=== PATIENT | female | born 1980 | race Caucasian/White ===

== ENCOUNTER 2017-07-02 11:09 | Emergency (ER) | payer BC ==
[2017-07-02 11:20] VITALS: BMI 32.8
[2017-07-02 11:24] VITALS: RESP 18; TEMP 97.7; O2SAT 100
[2017-07-02] MEDS ORDERED: Sodium Chloride 0.9% 1,000 ML IV STA (11:37)
--- NOTE | 2017-07-02 11:40 | ED PDOC ---
Arrival/HPI - General Chief Complaint: Abdominal Pain Time Seen by Provider: 07/02/17 11:37 Historian: Patient - History of Present Illness Narrative History of Present Illness (Text): 07/02/17 11:38 A 36 year old female, whose past medical history includes cholecystectomy, presents to the emergency department complaining of constant RLQ pain. Patient states nothing helps relief the pain and describes the pain as pressure-like. Patient experiences nausea, but no vomiting, fever, chills, or any other complaints. PMD: Dr. Gem Sargent Symptom Onset: Sudden Symptom Course: Unchanged Quality: Pressure Past Medical History - Provider Review Nursing Documentation Reviewed: Yes - Infectious Disease Hx of Infectious Diseases: None - Pulmonary Hx Asthma: Yes - Hematological/Oncological Hx Blood Transfusions: No - Musculoskeletal/Rheumatological Hx Falls: No - Psychiatric Hx Depression: No Hx Emotional Abuse: No Hx Physical Abuse: No Hx Substance Use: No - Surgical History Hx Section: Yes (x2) Hx Cholecystectomy: Yes Hx Tonsillectomy: Yes Other/Comment: nose surgery - Anesthesia Hx Anesthesia: Yes Hx Anesthesia Reactions: No Hx Malignant Hyperthermia: No - Suicidal Assessment Feels Threatened In Home Enviroment: No Family/Social History - Physician Review Nursing Documentation Reviewed: Yes Family/Social History: No Known Family HX Smoking Status: Never Smoked Hx Alcohol Use: No Hx Substance Use: No Hx Substance Use Treatment: No Allergies/Home Meds Allergies/Adverse Reactions: Allergies Penicillins Allergy (Verified 07/02/17 11:20) SHORTNESS OF BREATH Physical Exam - Physical Exam Narrative Physical Exam (Text): 07/02/17 11:39 - Review of Systems Constitutional: Normal. absent: Fatigue, Weight Change, Fevers Eyes: Normal ENT: denies sore throat, denies tristhmus Respiratory: Normal. absent: SOB, Cough, Sputum Cardiovascular: absent: Chest Pain, Palpitations, Syncope Gastrointestinal: Abdominal Pain (RLQ), Nausea. absent: Diarrhea, Vomiting Genitourinary: Normal. absent: Dysuria, Frequency, Hematuria, vaginal bleeding Musculoskeletal: Normal. absent: Arthralgias, Back Pain, Neck Pain Skin: no rashes, no erythema Neurological: absent: Focal Weakness Endocrine: Normal Hemo/Lymphatic: Normal Psychiatric: No suicidal or homicidal ideations Physical exam Patient appears age appropriate in no distress, speaking full sentences without difficulty - Systems Exam Head: Present: Atraumatic, Normocephalic Pupils: Present: PERRL Extroacular Muscles: Present: EOMI Conjunctiva: Present: Normal Mouth: Present: Moist Mucous Membranes Neck: Present: Normal Range of Motion. No: MIDLINE TENDERNESS, Paraspinal Tenderness Respiratory/Chest: Present: Clear to Auscultation, Good Air Exchange. No: Respiratory Distress, Accessory Muscle Use, Tachypneic Cardiovascular: Present: Regular Rate and Rhythm, Normal S1, S2, Peripheal Pulses Present. No: Murmurs Abdomen: Present: Tenderness (RLQ), Normal Bowel Sounds. No: Distention, Peritoneal Signs, Rebound, Guarding Back: Present: Normal Inspection. No: Midline Tenderness, Paraspinal Tenderness Upper Extremity: Present: Normal Inspection. No: Cyanosis, Edema Lower Extremity: Present: Normal Inspection. No: Edema Neurological: Present: GCS=15, Speech Normal, cranial nerves II through XII fully intact with no cerebellar abnormality, neurosensory fully intact. No focal neurological deficits. Skin: Present: Warm, Dry, Normal Color. No: Rashes Lymphatic: Present: OX3, NI, NC Psychiatric: Present: Alert, Oriented x 3, Normal Insight, Normal Concentration Vital Signs Reviewed: Yes Vital Signs Temp Pulse Resp BP Pulse Ox 07/02/17 13:28 65 18 125/74 100 07/02/17 12:28 63 18 128/79 100 07/02/17 11:24 97.7 F 65 18 130/84 100 Temperature: Afebrile Blood Pressure: Normal Pulse: Regular Respiratory Rate: Normal Appearance: Positive for: Well-Appearing Pain Distress: None Mental Status: Positive for: Alert and Oriented X 3 Medical Decision Making ED Course and Treatment: 07/02/17 11:41 Impression: 36 year old female with RLQ pain. Physical exam shows RLQ tenderness. Differential Diagnosis included but are not limited to: Ovarian Cyst vs. Appendicitis Plan: -- Abd/pelvis CT -- Labs -- Urinalysis -- Toradol -- Zofran -- IV Fluids -- Blood Culture -- Reassess and disposition Progress Notes: 07/02/17 13:32 CT IMPRESSION: There is a small 2 cm x 1.8 cm peripherally enhancing involuting or hemorrhagic cyst left ovary. No evidence of acute appendicitis. No evidence of nephrolithiasis or hydronephrosis. Borderline hepatomegaly with fatty infiltration. Mild splenomegaly. Status post cholecystectomy. Findings consistent with mild constipation. pt still c/o pain will order more meds and mg citrate pt has no LLQ tenderness to palpation or pain 07/02/17 14:17 On reevaluation, patient reports that she feels much better and would like to be discharged home. Patient's repeat abdominal exam is soft, nontender, non distended with positive bowel sounds in all 4 quadrants and no peritoneal signs. Patient is tolerating PO without any difficulty. states she is not driving home after morphine administration Pt states she understands to return to the ER right away for new or worsening symptoms or for inability to f/u with PMD or specialist as instructed. Patient states that she fully agrees with and understands discharge instructions. States that she agrees with the plan and disposition. Verbalized and repeated discharge instructions and plan. I have given the patient opportunity to ask any additional questions. - Lab Interpretations Lab Results: 07/02/17 12:13 07/02/17 12:13 Lab Results 07/02/17 12:13: Sodium 142, Potassium 3.9, Chloride 104, Carbon Dioxide 26, Anion Gap 16, BUN 15, Creatinine 0.7, Est GFR ( Amer) > 60, Est GFR (Non- Af Amer) > 60, Random Glucose 74, Calcium 9.5, Total Bilirubin 0.5, AST 89 H, ALT 172 H, Alkaline Phosphatase 82, Total Protein 8.4 H, Albumin 4.7, Globulin 3.6, Albumin/Globulin Ratio 1.3, Lipase 164 07/02/17 12:13: Urine Color Yellow, Urine Appearance Clear, Urine pH 6.0, Ur Specific [place] 1.020, Urine Protein Negative, Urine Glucose (UA) Negative, Urine Ketones Negative, Urine Blood Negative, Urine Nitrate Negative, Urine Bilirubin Negative, Urine Urobilinogen 0.2, Ur Leukocyte Esterase Negative 07/02/17 12:13: PT 10.3, INR 0.95, APTT 26.8 07/02/17 12:13: WBC 3.5 L, RBC 5.13, Hgb 13.5, Hct 40.6, MCV 79.1 L, MCH 26.3, MCHC 33.3, RDW 13.8, Plt Count 198, MPV 11.8 H, Gran % 34.2 L, Lymph % (Auto) 50.9 H, [place] % (Auto) 12.9 H, Eos % (Auto) 2.0, Baso % (Auto) 0.0, Gran # 1.20 L , Lymph # 1.8, [place] # 0.5, Eos # 0.1, Baso # 0.00 07/02/17 12:13: Blood Type A POSITIVE, Antibody Screen Negative, BBK History Checked Patient has bt I have reviewed the lab results: Yes - RAD Interpretation Radiology Orders: 07/02/17 11:37 ABD & PELVIS IV CONTRAST ONLY [CT] Stat - Medication Orders Current Medication Orders: Discontinued Medications Sodium Chloride (Sodium Chloride 0.9%) 1,000 mls @ 1,000 mls/hr IV .Q1H STA Stop: 07/02/17 12:36 Last Admin: 07/02/17 12:06 Dose: 1,000 mls/hr eMAR Start Stop Document 07/02/17 12:06 ID (Rec: 07/02/17 12:06 [id number]) Intravenous Solution Start Date 07/02/17 Start Time 12:06 Iohexol (Omnipaque 350 100 Ml) Confirm Administered Dose 350 mg .ROUTE .STK-MED ONE Stop: 07/02/17 12:53 Ketorolac Tromethamine (Toradol) 15 mg IVP STAT STA Stop: 07/02/17 11:38 Last Admin: 07/02/17 12:04 Dose: 15 mg MAR Pain Assessment Document 07/02/17 12:04 ID (Rec: 07/02/17 12:05 [id number]) Pain Reassessment Is this a pain reassessment? No Sleep Is patient sleeping during reassessment? No Presence of Pain Presence of Pain Yes Pain Scale Used Pain Scale Used Numeric Location Pain Location Body Site Abdomen Description Description Pressure Intensity of Pain at present 10 Acceptable Level of Pain 2 Pain Behavior Facial Grimacing IVP Administration Document 07/02/17 12:04 ID (Rec: 07/02/17 12:05 [id number]) Charges for Administration # of IVP Administrations 1 Magnesium Citrate (Citrate Of Mag) 300 ml PO ONCE ONE Stop: 07/02/17 13:35 Morphine Sulfate (Morphine) 4 mg IVP STAT STA Stop: 07/02/17 13:35 Last Admin: 07/02/17 14:04 Dose: 4 mg MAR Pain Assessment Document 07/02/17 14:04 ID (Rec: 07/02/17 14:05 [id number]) Pain Reassessment Is this a pain reassessment? Yes Sleep Is patient sleeping during reassessment? No Presence of Pain Presence of Pain Yes Pain Scale Used Pain Scale Used Numeric Location Pain Location Body Site Abdomen Description Description Intermittent Intensity of Pain at present 7 Acceptable Level of Pain 2 Pain Behavior Facial Grimacing IVP Administration Document 07/02/17 14:04 ID (Rec: 07/02/17 14:05 [id number]) Charges for Administration # of IVP Administrations 1 Ondansetron HCl (Zofran Inj) 4 mg IVP STAT STA Stop: 07/02/17 11:38 Last Admin: 07/02/17 12:06 Dose: 4 mg IVP Administration Document 07/02/17 12:06 ID (Rec: 07/02/17 12:06 [id number]) Charges for Administration # of IVP Administrations 1 - Scribe Statement The provider has reviewed the documentation as recorded by the Genoveva Troy Provider Scribe Attestation: All medical record entries made by the Christaibchun were at my direction and personally dictated by me. I have reviewed the chart and agree that the record accurately reflects my personal performance of the history, physical exam, medical decision making, and the department course for this patient. I have also personally directed, reviewed, and agree with the discharge instructions and disposition. Disposition/Present on Arrival - Present on Arrival Any Indicators Present on Arrival: No History of DVT/PE: No History of Uncontrolled Diabetes: No Urinary Catheter: No History of Decub. Ulcer: No History Surgical Site Infection Following: None - Disposition Have Diagnosis and Disposition been Completed?: Yes Diagnosis: Abdominal pain Disposition: HOME/ ROUTINE Disposition Time: 14:22 Patient Plan: Discharge Condition: GOOD Discharge Instructions (ExitCare): Abdominal Pain (ED), Ovarian Cyst (ED), Constipation (ED) Additional Instructions: PLEASE RETURN TO THE EMERGENCY DEPARTMENT FOR NEW OR WORSENING SYMPTOMS. RETURN RIGHT AWAY IF YOU CANNOT FOLLOW UP WITH YOUR PRIMARY CARE DOCTOR, CLINIC, OR SPECIALIST IN 1-2 DAYS. Prescriptions: Docusate [Colace] 100 mg PO DAILY PRN #[id number] cap PRN Reason: Constipation Referrals: PCP,NO [Non-Staff] - Follow up with primary Archie العراقي MD, MD [Medical Doctor] - Follow up with primary Tika Ospina MD [Medical Doctor] - Follow up with primary Forms: [employer] ([employer]), WORK NOTE
[2017-07-02 12:21] LABS: EOS # 0.1 (0.0-0.7); GRAN # 1.2 (1.4-6.5); GRAN % 34.2 % (50.0-68.0); HEMATOCRIT 40.6 % (36.0-48.0); LYMPH # 1.8 (1.2-3.4); LYMPH % 50.9 % (22.0-35.0); MEAN CELL VOLUME 79.1 fl (80.0-105.0); MEAN CORPUSCULAR HEMOGLOBIN 26.3 pg (25.0-35.0); MEAN CORPUSCULAR HGB CONC 33.3 g/dl (31.0-37.0); MEAN PLATELET VOLUME 11.8 fl (7.0-11.0); MONO # 0.5 (0.1-0.6); MONO % 12.9 % (1.0-6.0); RED CELL DISTRIBUTION WIDTH 13.8 % (11.5-14.5); WHITE BLOOD COUNT 3.5 10^3/ul (4.5-11.0)
[2017-07-02 12:30] LABS: ALB/GLOB RATIO 1.3 (1.1-1.8); ALKALINE PHOSPHATASE 82 U/L (38-126); ALT/SGPT 172 U/L (7-56); AST/SGOT 89 U/L (14-36); BILIRUBIN,TOTAL 0.5 mg/dL (0.2-1.3); BLOOD UREA NITROGEN 15 mg/dL (7-21); CALCIUM 9.5 mg/dL (8.4-10.5); CARBON DIOXIDE 26 mmol/L (21-33); CHLORIDE 104 mmol/L (98-107); GFR AFRICAN-AMERICAN > 60; GLUCOSE,RANDOM 74 mg/dL (70-110); LIPASE 164 U/L (23-300); POTASSIUM 3.9 mmol/L (3.6-5.0); SODIUM 142 mmol/L (132-148); TOTAL PROTEIN 8.4 g/dL (5.8-8.3)
[2017-07-02 12:31] LABS: INR 0.95 (0.93-1.08); PARTIAL THROMBOPLASTIN TIME 26.8 Seconds (23.7-30.8)
[2017-07-02 12:33] LABS: URINE BILIRUBIN NEGATIVE (NEGATIVE); URINE BLOOD NEGATIVE (NEGATIVE); URINE GLUCOSE (UA) NEGATIVE (NEGATIVE); URINE KETONE NEGATIVE (NEGATIVE); URINE LEUKOCYTE ESTERASE NEGATIVE Leu/uL (NEGATIVE); URINE PROTEIN NEGATIVE mg/dL (<30 mg/dL); URINE UROBILINOGEN 0.2 E.U./dL (<1 E.U./dL)
[2017-07-02 12:34] LABS: URINE APPEARANCE CLEAR (CLEAR); URINE COLOR YELLOW (YELLOW)
[2017-07-02] MEDS ORDERED: Iohexol 350 MG/100 ML VIAL ONE (12:52)
--- NOTE | 2017-07-02 13:26 | CT ---
PROCEDURE: CT abdomen and pelvis dated 07/02/2017 HISTORY: RLQ pain. COMPARISON: No prior TECHNIQUE: Contiguous helical/ transaxial images of the abdomen and pelvis. Oral contrast was administered. No IV contrast given. Coronal and Sagittal reformats generated. Radiation dose: Total exam DLP = 708.69 mGy-cm. This CT exam was performed using one or more of the following dose reduction techniques: Automated exposure control, adjustment of the mA and/or kV according to patient size, and/or use of iterative reconstruction technique. FINDINGS: LOWER THORAX: Lung bases clear. No infiltrate effusion or basilar pneumothorax. Heart size is within range of normal. No significant pericardial effusion. LIVER: The liver is borderline/mildly enlarged measuring over 18 cm in CC dimension. Mild fatty hepatic infiltration. No obvious hepatic mass collection or calcification. Portal and splenic veins are opacified. No No GALLBLADDER AND BILE DUCTS: Patient is status post cholecystectomy with metallic clips gallbladder fossa. PANCREAS: Unremarkable. No mass. No ductal dilatation. SPLEEN: Spleen appears mildly enlarged measuring over 13 cm in AP dimension. ADRENALS: No adrenal lesions seen. KIDNEYS AND URETERS: Kidneys demonstrate symmetric nephrograms. No evidence of nephrolithiasis or hydronephrosis. BLADDER: Urinary bladder is physiologically distended. No evidence of intraluminal urinary bladder calculi. REPRODUCTIVE: Uterus appears unremarkable. There is a small approximately 2 cm x 1.8 cm peripherally enhancing left adnexal cystic structure which may represent hemorrhagic or involuting cyst. . APPENDIX: Normal-appearing appendix felt to be present on axial image number [id number] and coronal image number [id number]. No evidence of periappendiceal inflammatory changes seen. BOWEL: Evaluation of the bowel somewhat limited due to the lack of oral contrast material. Stomach is incompletely distended which may account for thick-walled appearance. Gastritis not excluded. Visualized loops of small bowel exhibit normal contour and caliber. No evidence of acute mechanical small bowel obstruction. Moderate amount of stool is seen within the cecum and ascending colon suggesting mild fecal retention. . The proximal descending colon is is collapsed which presumably accounts for mild thick-walled appearance. Some submucosal fat deposition cannot be completely excluded. Moderate amount of stool seen throughout the sigmoid and rectum. PERITONEUM: Unremarkable. No fluid collection. No free air. LYMPH NODES: Unremarkable. No enlarged lymph nodes. VASCULATURE: Unremarkable. No aortic aneurysm. BONES: The osseous structures appear intact. There appears to be some minor sclerosis superior S1 endplate. OTHER FINDINGS: None. IMPRESSION: There is a small 2 cm x 1.8 cm peripherally enhancing involuting or hemorrhagic cyst left ovary. No evidence of acute appendicitis. No evidence of nephrolithiasis or hydronephrosis. Borderline hepatomegaly with fatty infiltration. Mild splenomegaly. Status post cholecystectomy. Findings consistent with mild constipation. Findings discussed with Dr. Mccarthy at approximately 1:25 p.m. with written down and read back verification.
[2017-07-02] MEDS ORDERED: Magnesium Citrate Oral SOL (300 ml) PO ONE (13:34)
[2017-07-02] MEDS ORDERED: Morphine 4 mg/ml ISec IVP STA (13:34)
[2017-07-02 15:01] VITALS: BP 116/74; PULSE 67
== END 2017-07-02 15:01 | disposition home or self-care (01) ==
LOC: ED 11:09
DX: R10.9 Unspecified abdominal pain (principal); Z90.49 Acquired absence of other specified parts of digestive tract
CPT/HCPCS: 74177; 80053; 81003; 83690; 85025; 85610; 85730; 86850; 86900; 87040; 96374; 96375; 99285; J1885; J2270; J2405; J7040; Q9967